=== PATIENT | female | born 1980 | race Two or more races ===

== ENCOUNTER 2016-10-02 15:43 | Inpatient (IN) | payer SELFPAY ==
[~2016-10-02] VITALS: Ht 162.6 cm; Wt 47.6 kg
[~2016-10-02 15:43] MED LIST: LANTUS SOL100 UNIT/1 SUBQ
[2016-10-02 15:48] VITALS: BP 169/11
--- NOTE | 2016-10-02 16:14 | Diagnostic Imaging Report ---
Indication: Chest Pain Comparison: None A single view chest radiograph was obtained. Findings: Cardiomediastinal appearance is within normal limits for age. Pulmonary vascularity is appropriate. The diaphragmatic contour is smooth and costophrenic angles are sharp. No pleural effusions are identified. The bones are unremarkable. Impression: No acute findings
[2016-10-02 16:20] LABS: BASOPHILS % (AUTO) 1.5 % (0.0-2.0); EOSINOPHILS % (AUTO) 2.1 % (0.0-3.0); LYMPHOCYTES % (AUTO) 28.2 % (20.0-45.0); MEAN CORPUSCULAR HEMOGLOBIN 30.4 PG (27.0-31.0); MEAN CORPUSCULAR HGB CONC 36.5 G/DL (32.0-36.0); MEAN CORPUSCULAR VOLUME 83 FL (80-99); MEAN PLATELET VOLUME 6.6 FL (6.5-10.1); MONOCYTES % (AUTO) 5.5 % (1.0-10.0); NEUTROPHILS % (AUTO) 62.8 % (45.0-75.0); PLATELET COUNT 334 K/UL (150-450); RED BLOOD COUNT 5.69 M/UL (4.20-5.40); RED CELL DISTRIBUTION WIDTH 11.7 % (11.6-14.8); WHITE BLOOD COUNT 9.8 K/UL (4.8-10.8)
[2016-10-02 16:41] LABS: ACETAMINOPHEN < 10 ug/mL (10-30); ALANINE AMINOTRANSFERASE 16 U/L (3-33); ALBUMIN/GLOBULIN RATIO 1.1 (1.0-2.7); ALCOHOL < 10 mg/dL; ANION GAP 20 (5-15); ASPARTATE AMINO TRANSFERASE 16 U/L (5-40); CALCIUM 9.2 mg/dL (8.6-10.2); CARBON DIOXIDE 22 mEQ/L (20-30); CHLORIDE 89 mEQ/L (98-107); CREATININE 0.7 mg/dL (0.5-0.9); GLOMERULAR FILTRATION RATE > 60 mL/min (>60); HEMOLYSIS 5; POTASSIUM 3.3 mEQ/L (3.4-4.9); SODIUM 131 mEQ/L (135-145); TOTAL PROTEIN 7.6 g/dL (6.6-8.7)
[2016-10-02 16:55] LABS: TROPONIN I < 0.30 ng/mL (<=0.30)
[2016-10-02 17:28] LABS: APPEARANCE,URINE CLEAR; KETONES,URINE NEGATIVE (NEGATIVE); LEUKOCYTE ESTERASE ,URINE NEGATIVE (NEGATIVE); NITRITE,URINE NEGATIVE (NEGATIVE); PH,URINE 7 (4.5-8.0); PROTEIN,URINE 3+ (NEGATIVE); UROBILINOGEN,URINE NORMAL MG/DL (0.0-1.0)
[2016-10-02] MEDS ORDERED: LORazepam Inj 2mg/ml 1ml IV ONE (17:30)
[2016-10-02 17:37] LABS: RBC,URINE 0-2 /HPF (0 - 2); WBC,URINE 0-2 /HPF (0 - 2)
[2016-10-02 17:38] LABS: SQUAMOUS EPITHELIAL CELL,UR OCCASIONAL /LPF (NONE/OCC)
[2016-10-02 19:00] VITALS: BP 140/96
--- NOTE | 2016-10-02 21:05 | Emergency Room Report ---
History of Present Illness General Chief Complaint: General Complaint Source: Patient, EMS Present Illness HPI 36-year-old female presents to ED for evaluation. Per EMS patient is complaining of dizziness and altered. EMS states that patient was found outside of the house. 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 They stopped at a grocery store and drink some or juice. States that he both admit he felt dizzy afterwards. She felt worse as per . Was lethargic and altered. Tachycardic. Patient states that she is a diabetic and did not take her medications today. Accu-Chek in the 300s. Denies chest pain or shortness of breath. Denies fevers or chills. No other aggravating or relieving factors. Denies any other associated symptoms Allergies: Coded Allergies: PENICILLINS (Unverified Allergy, Unknown, 10/02/16) Uncoded Allergies: PENICILLIN (Allergy, Unknown, 10/02/16) Patient History Past Medical History: none Past Surgical History: none Pertinent Family History: none Social History: Denies: alcohol use, drug use, smoking Last Menstrual Period: 09/19/16 Now: No Immunizations: UTD Reviewed Nursing Documentation: PMH: Agreed, PSxH: Agreed Nursing Documentation-PMH Past Medical History: No History, Except For Hx Hypertension: Yes Hx Diabetes: Yes Review of Systems All Other Systems: negative except mentioned in HPI Physical Exam Vital Signs Date Time Temp Pulse Resp B/P Pulse Ox O2 Delivery O2 Flow Rate FiO2 10/02/16 15:34 99.1 124 22 166/122 98 Room Air 10/02/16 15:48 2.0 Sp02 EP Interpretation: reviewed, normal General Appearance: non-toxic, lethargic Head: normocephalic, atraumatic Eyes: bilateral eye PERRL, bilateral eye normal inspection ENT: hearing grossly normal, normal pharynx, no angioedema, normal voice Neck: full range of motion, supple/symm/no masses Respiratory: chest non-tender, lungs clear, normal breath sounds, speaking full sentences Cardiovascular #1: no edema, tachycardia Cardiovascular #2: 2+ carotid (R), 2+ carotid (L), 2+ radial (R), 2+ radial (L) , 2+ dorsalis pedis (R), 2+ dorsalis pedis (L) Gastrointestinal: normal bowel sounds, non tender, soft, non-distended, no guarding, no rebound Rectal: deferred Genitourinary: normal inspection, no CVA tenderness Musculoskeletal: back normal, gait/station normal, normal range of motion, non- tender Neurologic: other - lethargic Psychiatric: other - lethargic Reflexes: 3+ bicep (R), 3+ bicep (L), 3+ tricep (R), 3+ tricep (L), 3+ knee (R) , 3+ knee (L) Skin: normal color, no rash, warm/dry, well hydrated Lymphatic: no adenopathy Medical Decision Making Diagnostic Impression: Primary Impression: Hyperglycemia Additional Impressions: Dizziness Altered level of consciousness ER Course Hospital Course 36-year-old F presents to ED with altered mental status. weak, lethargic Differential diagnoses include: Psychosis, EtOH, drug abuse Clinical course patient placed on stretcher. On foam charger. After initial history and physical ordered labs, IV fluids, EKG, CT brain. Labs reviewed-electrolytes okay, no leukocytosis, hemoglobin/hematocrit stable, tox panel + THC EKG - sinus tachycardia no acute changes, interpreted by me CXR unremarkable CT brain shows no acute pathology Patient remained tachycardic, feels too dizzy to walk. Do not believe patient can be discharged at this time. Will be admitted Case discussed with David he agreed to admit the patient to his service for further care and support i. I feel this is a highly complex case requiring extensive working including EKG/Rhythm strip, Xray/CT/US, Blood/urine lab work, repeat exams while in ED, and administration of strong opiates/narcotics for pain control, admission to hospital or close patient follow up. Diagnosis -hyperglycemia, dizziness, ALOC admitted to telemetry in serious condition Labs Test 10/02/16 15:50 10/02/16 16:50 White Blood Count 9.8 K/UL (4.8-10.8) Red Blood Count 5.69 M/UL (4.20-5.40) Hemoglobin 17.3 G/DL (12.0-16.0) Hematocrit 47.4 % (37.0-47.0) Mean Corpuscular Volume 83 FL (80-99) Mean Corpuscular Hemoglobin 30.4 PG (27.0-31.0) Mean Corpuscular Hemoglobin Concent 36.5 G/DL (32.0-36.0) Red Cell Distribution Width 11.7 % (11.6-14.8) Platelet Count 334 K/UL (150-450) Mean Platelet Volume 6.6 FL (6.5-10.1) Neutrophils (%) (Auto) 62.8 % (45.0-75.0) Lymphocytes (%) (Auto) 28.2 % (20.0-45.0) Monocytes (%) (Auto) 5.5 % (1.0-10.0) Eosinophils (%) (Auto) 2.1 % (0.0-3.0) Basophils (%) (Auto) 1.5 % (0.0-2.0) Sodium Level 131 mEQ/L (135-145) Potassium Level 3.3 mEQ/L (3.4-4.9) Chloride Level 89 mEQ/L (98-107) Carbon Dioxide Level 22 mEQ/L (20-30) Anion Gap 20 (5-15) Blood Urea Nitrogen 10 mg/dL (7-23) Creatinine 0.7 mg/dL (0.5-0.9) Estimat Glomerular Filtration Rate > 60 mL/min (>60) Glucose Level 387 mg/dL (74-106) Calcium Level 9.2 mg/dL (8.6-10.2) Total Bilirubin 0.3 mg/dL (0.0-1.2) Aspartate Amino Transf (AST/SGOT) 16 U/L (5-40) Alanine Aminotransferase (ALT/SGPT) 16 U/L (3-33) Alkaline Phosphatase 149 U/L (35-104) Total Creatine Kinase 128 U/L (26-140) Troponin I < 0.30 ng/mL (<=0.30) Total Protein 7.6 g/dL (6.6-8.7) Albumin 4.1 g/dL (3.5-5.2) Globulin 3.5 g/dL Albumin/Globulin Ratio 1.1 (1.0-2.7) Salicylates Level < 1 mg/dL (10-30) Acetaminophen Level < 10 ug/mL (10-30) Serum Alcohol < 10 mg/dL Acetone Level Negative (NEGATIVE) Urine Color Pale yellow Urine Appearance Clear Urine pH 7 (4.5-8.0) Urine Specific [place] 1.005 (1.005-1.035) Urine Protein 3+ (NEGATIVE) Urine Glucose (UA) 4+ (NEGATIVE) Urine Ketones Negative (NEGATIVE) Urine Occult Blood Negative (NEGATIVE) Urine Nitrite Negative (NEGATIVE) Urine Bilirubin Negative (NEGATIVE) Urine Urobilinogen Normal MG/DL (0.0-1.0) Urine Leukocyte Esterase Negative (NEGATIVE) Urine RBC 0-2 /HPF (0 - 2) Urine WBC 0-2 /HPF (0 - 2) Urine Squamous Epithelial Cells Occasional /LPF Urine Bacteria None /HPF (NONE) Urine HCG, Qualitative Negative Urine Opiates Screen Negative (NEGATIVE) Urine Barbiturates Screen Negative (NEGATIVE) Phencyclidine (PCP) Screen Negative (NEGATIVE) Urine Amphetamines Screen Negative (NEGATIVE) Urine Benzodiazepines Screen Negative (NEGATIVE) Urine Cocaine Screen Negative (NEGATIVE) Urine Marijuana (THC) Screen Positive (NEGATIVE) EKG Diagnostic Results Rate: tachycardiac Rhythm: NSR ST Segments: no acute changes ASA given to the pt in ED: No Rhythm Strip Diag. Results EP Interpretation: yes Rhythm: NSR, no PVC's, no ectopy Chest X-Ray Diagnostic Results EP Interpretation: No Findings: no consolidation, no effusion, no pneumothorax, no acute cardiopulmonary disease Number of Views: 1 CT/MRI/US Diagnostic Results CT/MRI/US Diagnostic Results : Imaging Test Ordered: CT Head Impression no acute process Last Vital Signs Date Time Temp Pulse Resp B/P Pulse Ox O2 Delivery O2 Flow Rate FiO2 10/02/16 19:00 116 15 140/96 100 Nasal Cannula 2.0 10/02/16 15:48 99.1 Status: improved Disposition: ADMITTED INPATIENT Condition: Serious Patient Instructions: Hyperglycemia, [id number] KASIA GREENE M.D. Oct 02, 2016 21:05
[2016-10-03] VITALS: BP 135/76
[2016-10-03] MEDS: NovoLOG Insulin Flexpen SUBQ SCH ×5 (00:30→21:08)
[2016-10-03 04:00] VITALS: BP 113/70
[2016-10-03] MEDS ORDERED: NovoLOG Insulin Flexpen SUBQ SCH (06:30)
[2016-10-03 07:52] VITALS: BP 123/82
[2016-10-03 08:41] LABS: BASOPHILS % (AUTO) 1.3 % (0.0-2.0); EOSINOPHILS % (AUTO) 2.2 % (0.0-3.0); LYMPHOCYTES % (AUTO) 33.2 % (20.0-45.0); MEAN CORPUSCULAR HEMOGLOBIN 28.2 PG (27.0-31.0); MEAN CORPUSCULAR HGB CONC 34.2 G/DL (32.0-36.0); MEAN CORPUSCULAR VOLUME 82 FL (80-99); MEAN PLATELET VOLUME 6.6 FL (6.5-10.1); MONOCYTES % (AUTO) 6.7 % (1.0-10.0); NEUTROPHILS % (AUTO) 56.7 % (45.0-75.0); PLATELET COUNT 339 K/UL (150-450); RED BLOOD COUNT 5.33 M/UL (4.20-5.40); RED CELL DISTRIBUTION WIDTH 12.1 % (11.6-14.8); WHITE BLOOD COUNT 7.9 K/UL (4.8-10.8)
--- NOTE | 2016-10-03 08:51 | Diagnostic Imaging Report ---
Indication: Altered mental status Technique: Contiguous 5 mm thick transaxial imaging of the head obtained in a Siemens Sensation [address] scanner. Soft tissue and bone windows generated. Total Dose length Product (DLP): [address] Dose Index Volume (CTDIvol): 70.38 mGy Comparison: none Findings: The size and configuration of the cortical sulci, basal cisterns, and ventricles are within normal limits for age. There is no mass effect, midline shift, or edema identified. There is no evidence of acute hemorrhage or abnormal intra-axial or extra-axial fluid collections. The bones and soft tissues are unremarkable. Impression: No mass effect, edema or acute bleed. The CT scanner at [facility] is accredited by the [employer] and the scans are performed using dose optimization techniques as appropriate to a performed exam including Automatic Exposure control.
[2016-10-03 08:57] LABS: ALANINE AMINOTRANSFERASE 13 U/L (3-33); ALBUMIN/GLOBULIN RATIO 1.2 (1.0-2.7); ANION GAP 11 (5-15); ASPARTATE AMINO TRANSFERASE 16 U/L (5-40); CALCIUM 8.6 mg/dL (8.6-10.2); CARBON DIOXIDE 22 mEQ/L (20-30); CHLORIDE 100 mEQ/L (98-107); CREATININE 0.5 mg/dL (0.5-0.9); GLOMERULAR FILTRATION RATE > 60 mL/min (>60); HEMOLYSIS 9; POTASSIUM 2.9 mEQ/L (3.4-4.9); SODIUM 133 mEQ/L (135-145); TOTAL PROTEIN 5.8 g/dL (6.6-8.7)
--- NOTE | 2016-10-03 10:51 | Consultation ---
Consult Note Consult Note 36-year-old female presents to ED for evaluation. Per EMS patient is complaining of dizziness and altered. EMS states that patient was found outside of the house. 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 They stopped at a grocery store and drink some or juice. States that he both admit he felt dizzy afterwards. She felt worse as per . Was lethargic and altered. Tachycardic. Patient states that she is a diabetic and did not take her medications today. Accu-Chek in the 300s. Denies chest pain or shortness of breath. Denies fevers or chills. No other aggravating or relieving factors. Denies any other associated symptoms Allergies: Coded Allergies: PENICILLINS (Unverified Allergy, Unknown, 10/02/16) Uncoded Allergies: PENICILLIN (Allergy, Unknown, 10/02/16) Assessment/Plan status: Low Na depletional Low k Urine + for Cannabis HyperGlycemia Proteinuria Plan: Isotonic IV K supplement Gastric support Prandin per orders KENNY TIPTON Oct 03, 2016 10:51
[2016-10-03 11:55] VITALS: BP 127/79
[2016-10-03] MEDS: Repaglinide 0.5mg Tab ORAL SCH ×2 (11:58→16:27)
--- NOTE | 2016-10-03 17:52 | Cardiology Report ---
APPROVED REPORT EKG Measurement Heart [id number] Sinus tachycardia Possible Left atrial enlargement Borderline ECG
--- NOTE | 2016-10-03 19:31 | General Progress Note ---
Assessment/Plan Problem List: (1) Altered level of consciousness ICD Codes: R40.4 - Transient alteration of awareness SNOMED: 0977326 (2) Dizziness ICD Codes: R42 - Dizziness and giddiness SNOMED: 977954638, 590325345 (3) Hyperglycemia ICD Codes: R73.9 - Hyperglycemia, unspecified SNOMED: 21408303 Assessment/Plan DC Prandin start Glipizide 50 mg bid + Metformin 500 mg bid continue SSI check A1c Subjective Allergies: Coded Allergies: PENICILLINS (Unverified Allergy, Unknown, 10/02/16) All Systems: reviewed and negative except above Subjective admitted with dizziness and glucose of 300 mg/dL missed her diabetic medications she feels fine now and wants to go home Objective Last 24 Hour Vital Signs Date Time Temp Pulse Resp B/P Pulse Ox O2 Delivery O2 Flow Rate FiO2 10/03/16 16:00 102 10/03/16 12:00 85 10/03/16 11:55 97.0 84 18 127/79 98 Room Air 10/03/16 08:00 85 10/03/16 07:52 97.5 99 18 123/82 97 Room Air 10/03/16 04:00 97.6 85 20 113/70 98 Nasal Cannula 2.0 10/03/16 04:00 87 10/03/16 00:00 97.8 111 20 135/76 99 Nasal Cannula 2.0 10/03/16 00:00 91 10/02/16 22:26 132/78 Intake and Output 10/02/16 10/03/16 19:00 07:00 Intake Total 1000 ml 1200 ml Balance 1000 ml 1200 ml Intake Oral 0 ml 200 ml IV Total 1000 ml 1000 ml Laboratory Tests 10/03/16 08:00: White Blood Count 7.9, Red Blood Count 5.33, Hemoglobin 15.0, Hematocrit 43.9, Mean Corpuscular Volume 82, Mean Corpuscular Hemoglobin 28.2, Mean Corpuscular Hemoglobin Concent 34.2, Red Cell Distribution Width 12.1, Platelet Count 339, Mean Platelet Volume 6.6, Neutrophils (%) (Auto) 56.7, Lymphocytes (%) (Auto) 33.2, Monocytes (%) (Auto) 6.7, Eosinophils (%) (Auto) 2.2, Basophils (%) (Auto ) 1.3, Sodium Level 133L, Potassium Level 2.9L, Chloride Level 100, Carbon Dioxide Level 22, Anion Gap 11, Blood Urea Nitrogen 6L, Creatinine 0.5, Estimat Glomerular Filtration Rate > 60, Glucose Level 226#H, Uric Acid 4.4, Calcium Level 8.6, Total Bilirubin 0.3, Aspartate Amino Transf (AST/SGOT) 16, Alanine Aminotransferase (ALT/SGPT) 13, Alkaline Phosphatase 111H, Total Protein 5.8L, Albumin 3.2L, Globulin 2.6, Albumin/Globulin Ratio 1.2 10/03/16 13:30: Urine Random Sodium 59 Height (Feet): 5 Height (Inches): 4.00 Weight (Pounds): 105 General Appearance: no apparent distress EENT: PERRL/EOMI Neck: normal alignment Cardiovascular: normal rate Respiratory/Chest: chest wall non-tender Abdomen: normal bowel sounds Pelvis: normal external exam Edema: no edema noted Arm (L), no edema noted Arm (R), no edema noted Leg (L), no edema noted Leg (R), no edema noted Pedal (L), no edema noted Pedal (R), no edema noted Generalized Objective Current Medications Medications (Trade) Dose Ordered Sig/Byron Route PRN Reason Start Time Stop Time Status Last Admin Dose Admin Acetaminophen (Tylenol) 650 mg Q4H PRN ORAL Mild Pain/Temp > 100.5 10/02/16 23:00 11/01/16 22:59 Dextrose (Dextrose 50%) STAT PRN IV Hypoglycemia 10/02/16 23:00 11/01/16 22:59 Insulin Aspart BEFORE MEALS AND HS SUBQ 10/02/16 23:00 11/01/16 22:59 10/03/16 16:27 Pantoprazole (Protonix) 40 mg EVERY 12 HOURS ORAL 10/03/16 11:00 11/02/16 10:59 10/03/16 11:06 Potassium Chloride/Sodium Chloride (KCl/Sodium Chloride 1000ml bag) 1,020 ml @ 75 mls/hr [id number] IV 10/03/16 12:00 11/02/16 11:59 10/03/16 11:32 Repaglinide (Prandin) 0.5 mg TIAC ORAL 10/03/16 11:30 11/02/16 11:29 10/03/16 16:27 NAZEMI,APOLLO Oct 03, 2016 19:31
[2016-10-03 20:00] VITALS: BP 131/91
[2016-10-03] MEDS: metFORMIN 500mg tab ORAL SCH (21:04)
[2016-10-03] MEDS: GlipiZIDE 5mg tab ORAL SCH (21:05)
--- NOTE | 2016-10-03 22:14 | Neurology Progress Note ---
Interim History Interim History Interim History NEUROLOGY CONSULTATION: Full note dictated #[id number] 36 y/o, RH, HF with 4 year H/O DM. Was cleaning a house with her and had some OJ following which she felt confused, disoriented and unwell. She does not remember details. Fells well now. ON EXAM: Normal except for mild cognitive problems which could be due to poor education Global hyporeflexia. LABS: Elevated HB and Glu, low Na. UTox + for THC CT of brain Normal IMPRESSION: Altered mental state now resolved possibly due to THC intoxication. REC: Stay away from drugs. BS control. Hari Grande M.D., M.S.P.H. Objective Physical Exam Last Vital Signs Date Time Temp Pulse Resp B/P Pulse Ox O2 Delivery O2 Flow Rate FiO2 10/03/16 20:00 95.0 86 18 131/91 98 Room Air 2.0 Laboratory Tests Test 10/03/16 08:00 10/03/16 13:30 White Blood Count 7.9 K/UL (4.8-10.8) Red Blood Count 5.33 M/UL (4.20-5.40) Hemoglobin 15.0 G/DL (12.0-16.0) Hematocrit 43.9 % (37.0-47.0) Mean Corpuscular Volume 82 FL (80-99) Mean Corpuscular Hemoglobin 28.2 PG (27.0-31.0) Mean Corpuscular Hemoglobin Concent 34.2 G/DL (32.0-36.0) Red Cell Distribution Width 12.1 % (11.6-14.8) Platelet Count 339 K/UL (150-450) Mean Platelet Volume 6.6 FL (6.5-10.1) Neutrophils (%) (Auto) 56.7 % (45.0-75.0) Lymphocytes (%) (Auto) 33.2 % (20.0-45.0) Monocytes (%) (Auto) 6.7 % (1.0-10.0) Eosinophils (%) (Auto) 2.2 % (0.0-3.0) Basophils (%) (Auto) 1.3 % (0.0-2.0) Sodium Level 133 mEQ/L (135-145) L Potassium Level 2.9 mEQ/L (3.4-4.9) L Chloride Level 100 mEQ/L (98-107) Carbon Dioxide Level 22 mEQ/L (20-30) Anion Gap 11 (5-15) Blood Urea Nitrogen 6 mg/dL (7-23) L Creatinine 0.5 mg/dL (0.5-0.9) Estimat Glomerular Filtration Rate > 60 mL/min (>60) Glucose Level 226 mg/dL (74-106) #H Uric Acid 4.4 mg/dL (3.0-7.5) Calcium Level 8.6 mg/dL (8.6-10.2) Total Bilirubin 0.3 mg/dL (0.0-1.2) Aspartate Amino Transf (AST/SGOT) 16 U/L (5-40) Alanine Aminotransferase (ALT/SGPT) 13 U/L (3-33) Alkaline Phosphatase 111 U/L (35-104) H Total Protein 5.8 g/dL (6.6-8.7) L Albumin 3.2 g/dL (3.5-5.2) L Globulin 2.6 g/dL Albumin/Globulin Ratio 1.2 (1.0-2.7) Urine Random Sodium 59 mmol/L HARI GRANDE Oct 03, 2016 22:14
--- NOTE | 2016-10-03 23:00 | Consultation ---
DATE OF CONSULTATION: 10/03/2016 NEUROLOGY CONSULTATION REQUESTING PHYSICIAN: Kiko Hernandez M.D. HISTORY: Ms. Lubna Chow is a 36-year-old, right-handed, lady, who has an approximately 4-year history of diabetes mellitus, which she says is well controlled on metformin and glipizide. She was functioning relatively well and working with her , cleaning a house and following that had some orange juice. A few minutes after she had drunk the orange juice she felt confused, disoriented and unwell. She does not remember any further details. Following that, however as per her chart she was brought into the [facility] emergency room for an altered mental state. She was evaluated in the emergency room and her urine toxicology screen was positive for cannabinoids. At this point in time, she feels that she is back to her normal self. She denies any weakness on one side or the other, numbness on one side or the other, problems with speech, problems with language, problems with vision, or problems with her memory. She also denies any similar symptoms in the past. PAST MEDICAL HISTORY: Significant for diabetes mellitus for the last 4 years. FAMILY HISTORY: Significant for diabetes mellitus in other family members. PERSONAL HISTORY: Home: She lives with her . Work: She and her clean houses. Habits: She denies the use of alcohol, tobacco, or illicit drugs and vehemently denies using cannabinoids. PHYSICAL EXAMINATION: GENERAL: She is a well-developed, well-nourished, pleasant lady, lying in bed, in no acute distress. VITAL SIGNS: Pulse 86 per minute, blood pressure 131/91 mmHg, respirations 18 per minute, and temperature 95 degrees Fahrenheit. HEAD: Normocephalic and atraumatic. NECK: No neck rigidity was observed. EENT EXAMINATION: Benign. NEUROLOGIC EXAMINATION: MENTAL STATUS EXAMINATION: She was alert and awake. She was oriented to person, place, and time except for the exact date and name of the hospital. She was able to recall 3/3 words immediately after 1 and 3 minutes. She was able to remember presidents Trump and Obama, but could not remember presidents prior to that. Her mathematical skills were minimally impaired. Her visuospatial function was also minimally impaired. It should be noted that her educational level was poor. SPEECH: She had no dysarthria. LANGUAGE: She had no aphasia and Azeri. CRANIAL NERVE EXAMINATION: II: The visual hendrickson were intact to confrontation testing. III, IV & : External ocular movements were full and the pupils 3 mm in diameter, equal, round, regular and reactive to light. V: She had normal facial sensations, and the temporales, masseters, and pterygoids function normally. VII: She had normal facial expressions and no facial asymmetry. VIII: She was able to hear well bilaterally and had no nystagmus. IX: The palate moved symmetrically on phonation. X: She had no hoarseness of voice. XI: The sternocleidomastoids and trapezii functioned normally. XII: The tongue was in the midline without any fasciculations or atrophy. MOTOR SYSTEM: The tone was normal in all four extremities. Examination of muscle mass revealed no focal wasting. Examination of power revealed grade 5/5 power in all muscle groups tested. SENSORY EXAMINATION: She had intact sensations to pinprick, light touch, and graphesthesia. COORDINATION: She performed well on [id number]-cx-urcp and fjri-gx-iwts testing. On Romberg test, she swayed but did not fall to one side or the other. REFLEXES: Trace+ and bilaterally symmetrical at the biceps, triceps, brachioradialis, and knees. 0 at both ankles. The plantar responses were flexor bilaterally. STANCE: She stood up with contact guard. GAIT: She walked well with contact guard. DIAGNOSTIC IMPRESSION: 1. Ms. Lubna Chow is a 36-year-old, right-handed, lady, who does have a past history of diabetes mellitus, which apparently is well controlled on glipizide and metformin. She was functioning relatively well until 10/02/2016 when she her and were cleaning a house, and then after she had drunk some orange juice she felt confused, disoriented and unwell. Following that, she is amnestic for the events until she came to the hospital. At this point in time, she feels that she is back to her normal self. 2. The neurological examination at this time reveal that she is disoriented to the exact date and name of the hospital. She has problems with remote memory, visuospatial function, and higher cognitive function, but it should be noted that the educational level is poor. She also has global hyporeflexia. 3. Laboratory data revealed that her hemoglobin was elevated to 17.3, her sodium was down to 131, blood sugar was elevated to 387, her alkaline phosphatase was elevated to 149 and her urine toxicology screen was positive for cannabinoids. 4. The patient's history, neurological examination, and laboratory data are most compatible with an episode of altered mental state, which has now resolved most probably related to cannabinoid intoxication. RECOMMENDATIONS: 1. The patient was made aware that her urine toxicology screen was positive for cannabinoids in spite of her saying that she has never used them. 2. She was instructed to stay away from all illicit drugs. 3. Her blood sugars should be controlled and brought down to a more physiological range. Thank you for entrusting me with the care of Ms. Chow. I shall follow her with you. Jose R Grande M.D., M.S.P.H. DR: VERONICA JOB#: [id number] ARAM
[2016-10-04] VITALS (7 sets, daily range): BP systolic 118–149; BP diastolic 80–90
--- NOTE | 2016-10-04 00:15 | History and Physical Report ---
DATE OF ADMISSION: 10/02/2016 HISTORY OF PRESENT ILLNESS: The patient is admitted for dizziness, weakness, and altered mental status. She states that she drank some orange juice and felt bad afterwards. Workup is negative so far. The patient denies nausea, vomiting, or diarrhea. Has dizziness and vertigo. The patient's blood sugar was also elevated. PAST MEDICAL HISTORY: Diabetes and hypertension. PAST SURGICAL HISTORY: . ALLERGIES: None. MEDICATIONS: Insulin. FAMILY HISTORY: Does have history of diabetes and hypertension. SOCIAL HISTORY: The patient denies smoking, alcohol, or illicit drugs. REVIEW OF SYSTEMS: HEENT: Denies headaches. Respiratory: Denies shortness of breath. Denies cough. Cardiovascular: Denies chest pain. GI: Denies nausea, vomiting, or diarrhea. Extremities: Denies pain in the extremities. Central nervous system: Denies change in vision or speech pattern. She does have dizziness and weakness and , however, denies diplopia. PHYSICAL EXAMINATION: VITAL SIGNS: Temperature is 97.6 degrees, pulse 87, and blood pressure 113/70. HEENT: PERRLA. NECK: Supple. No lymphadenopathy. CHEST: Clear to auscultation. GI: Soft, nontender, and nondistended. No organomegaly. EXTREMITIES: No edema. Moves all four extremities. NEUROLOGIC: Sensory is intact to light touch. Reflexes are equal on both sides. Oriented x3. Cranial nerves II through XII intact. LABORATORY DATA: Laboratory-mendosa, WBC 9.8, hemoglobin 17.3, and platelets of 334,000. Sodium 131, potassium 3.3, BUN 10, creatinine 0.7, and glucose 287. ASSESSMENT AND PLAN: 1. Hyponatremia. 2. Hypokalemia. 3. Elevated blood sugar. 4. Uncontrolled diabetes. 5. Given weakness and altered mental status, I have asked Dr. Sibley, Dr. Tolbert, and Dr. Grande to see the patient for the above-mentioned diagnoses and treatment. Kiko Hernandez M.D. DR: MARIBETH JOB#: [id number] CC:
[2016-10-04] MEDS: NovoLOG Insulin Flexpen SUBQ SCH ×4 (06:22→20:39)
[2016-10-04 07:46] LABS: BASOPHILS % (AUTO) 1.2 % (0.0-2.0); EOSINOPHILS % (AUTO) 4.5 % (0.0-3.0); LYMPHOCYTES % (AUTO) 28.1 % (20.0-45.0); MEAN CORPUSCULAR HEMOGLOBIN 28.3 PG (27.0-31.0); MEAN CORPUSCULAR HGB CONC 34.2 G/DL (32.0-36.0); MEAN CORPUSCULAR VOLUME 83 FL (80-99); MEAN PLATELET VOLUME 6.4 FL (6.5-10.1); MONOCYTES % (AUTO) 7.3 % (1.0-10.0); NEUTROPHILS % (AUTO) 58.9 % (45.0-75.0); PLATELET COUNT 354 K/UL (150-450); RED BLOOD COUNT 5.79 M/UL (4.20-5.40); WHITE BLOOD COUNT 7.7 K/UL (4.8-10.8)
[2016-10-04 08:10] LABS: CRP QUANT < 0.3 mg/dL (< 0.5); MAGNESIUM 1.2 mg/dL (1.7-2.5); URIC ACID 4.5 mg/dL (3.0-7.5)
[2016-10-04 08:12] LABS: ALANINE AMINOTRANSFERASE 14 U/L (3-33); ALBUMIN/GLOBULIN RATIO 1.6 (1.0-2.7); ANION GAP 17 (5-15); ASPARTATE AMINO TRANSFERASE 14 U/L (5-40); CALCIUM 9.3 mg/dL (8.6-10.2); CARBON DIOXIDE 22 mEQ/L (20-30); CHLORIDE 96 mEQ/L (98-107); CHOLESTEROL 351 mg/dL (< 200); CHOLESTEROL/HDL RATIO 7.8 (3.3-4.4); CREATININE 0.6 mg/dL (0.5-0.9); GLOMERULAR FILTRATION RATE > 60 mL/min (>60); HEMOLYSIS 2; LDL CHOLESTEROL (CALC.) 228 mg/dL (60-99); POTASSIUM 4.1 mEQ/L (3.4-4.9); SODIUM 135 mEQ/L (135-145)
[2016-10-04 08:27] LABS: HEMOGLOBIN A1C 11.5 % (< 6.0)
[2016-10-04] MEDS: GlipiZIDE 5mg tab ORAL SCH ×2 (09:34→17:29)
[2016-10-04] MEDS: metFORMIN 500mg tab ORAL SCH ×2 (09:34→17:29)
--- NOTE | 2016-10-04 12:13 | General Progress Note ---
Assessment/Plan Problem List: (1) Hyperglycemia ICD Codes: R73.9 - Hyperglycemia, unspecified SNOMED: 87557511 (2) Dizziness ICD Codes: R42 - Dizziness and giddiness SNOMED: 604379038, [id number] (3) Altered level of consciousness ICD Codes: R40.4 - Transient alteration of awareness SNOMED: 6935589 Status: progressing Assessment/Plan afebrile vitals stable no wheezing clinically improving reviewed chart and labs Subjective ROS Limited/Unobtainable: Yes Allergies: Coded Allergies: PENICILLINS (Unverified Allergy, Unknown, 10/02/16) Objective Last 24 Hour Vital Signs Date Time Temp Pulse Resp B/P Pulse Ox O2 Delivery O2 Flow Rate FiO2 10/04/16 11:54 98.8 90 18 143/88 98 Room Air 10/04/16 09:00 76 10/04/16 08:00 98.4 81 18 120/81 99 Room Air 10/04/16 04:17 97.2 86 20 118/85 98 Room Air 10/04/16 04:00 75 10/04/16 03:57 97.2 88 18 136/90 98 Room Air 2.0 10/04/16 00:00 77 10/04/16 00:00 98.2 88 18 136/90 98 Room Air 2.0 10/03/16 20:00 84 10/03/16 20:00 95.0 86 18 131/91 98 Room Air 2.0 10/03/16 16:00 102 Intake and Output 10/03/16 10/04/16 19:00 07:00 Intake Total 685 ml 977 ml Balance 685 ml 977 ml Intake Oral 120 ml 100 ml IV Total 565 ml 877 ml # Voids 3 Laboratory Tests 10/03/16 13:30: Urine Random Sodium 59 10/04/16 07:00: White Blood Count 7.7, Red Blood Count 5.79H, Hemoglobin 16.4H, Hematocrit 47.9H , Mean Corpuscular Volume 83, Mean Corpuscular Hemoglobin 28.3, Mean Corpuscular Hemoglobin Concent 34.2, Red Cell Distribution Width 12.0, Platelet Count 354, Mean Platelet Volume 6.4L, Neutrophils (%) (Auto) 58.9, Lymphocytes ( %) (Auto) 28.1, Monocytes (%) (Auto) 7.3, Eosinophils (%) (Auto) 4.5H, Basophils (%) (Auto) 1.2, Sodium Level 135, Potassium Level 4.1, Chloride Level 96L, Carbon Dioxide Level 22, Anion Gap 17H, Blood Urea Nitrogen 9, Creatinine 0.6, Estimat Glomerular Filtration Rate > 60, Glucose Level 267H, Hemoglobin A1c 11.5H, Uric Acid 4.5, Calcium Level 9.3, Phosphorus Level 3.0, Magnesium Level 1.2L, Total Bilirubin 0.3, Aspartate Amino Transf (AST/SGOT) 14, Alanine Aminotransferase (ALT/SGPT) 14, Alkaline Phosphatase 121H, C-Reactive Protein, Quantitative < 0.3, Total Protein 6.0L, Albumin 3.7, Globulin 2.3, Albumin/ Globulin Ratio 1.6, Triglycerides Level 390H, Cholesterol Level 351H, LDL Cholesterol 228H, HDL Cholesterol 45, Cholesterol/HDL Ratio 7.8H Height (Feet): 5 Height (Inches): 4.00 Weight (Pounds): 105 Cardiovascular: normal rate Respiratory/Chest: lungs clear Abdomen: soft Kiko Hernandez MD Oct 04, 2016 12:13
--- NOTE | 2016-10-04 12:30 | General Progress Note ---
Assessment/Plan Status: stable Assessment/Plan Low Na depletional corrected Low k- corrected- Urine + for Cannabis HyperGlycemia Proteinuria Low Mag Plan: Isotonic IV Mag supplement- K supplement Gastric support Glipizide and Metformin per orders Subjective ROS Limited/Unobtainable: No Allergies: Coded Allergies: PENICILLINS (Unverified Allergy, Unknown, 10/02/16) Objective Last 24 Hour Vital Signs Date Time Temp Pulse Resp B/P Pulse Ox O2 Delivery O2 Flow Rate FiO2 10/04/16 11:54 98.8 90 18 143/88 98 Room Air 10/04/16 09:00 76 10/04/16 08:00 98.4 81 18 120/81 99 Room Air 10/04/16 04:17 97.2 86 20 118/85 98 Room Air 10/04/16 04:00 75 10/04/16 03:57 97.2 88 18 136/90 98 Room Air 2.0 10/04/16 00:00 77 10/04/16 00:00 98.2 88 18 136/90 98 Room Air 2.0 10/03/16 20:00 84 10/03/16 20:00 95.0 86 18 131/91 98 Room Air 2.0 10/03/16 16:00 102 Intake and Output 10/03/16 10/04/16 19:00 07:00 Intake Total 685 ml 977 ml Balance 685 ml 977 ml Intake Oral 120 ml 100 ml IV Total 565 ml 877 ml # Voids 3 Laboratory Tests 10/03/16 13:30: Urine Random Sodium 59 10/04/16 07:00: White Blood Count 7.7, Red Blood Count 5.79H, Hemoglobin 16.4H, Hematocrit 47.9H , Mean Corpuscular Volume 83, Mean Corpuscular Hemoglobin 28.3, Mean Corpuscular Hemoglobin Concent 34.2, Red Cell Distribution Width 12.0, Platelet Count 354, Mean Platelet Volume 6.4L, Neutrophils (%) (Auto) 58.9, Lymphocytes ( %) (Auto) 28.1, Monocytes (%) (Auto) 7.3, Eosinophils (%) (Auto) 4.5H, Basophils (%) (Auto) 1.2, Sodium Level 135, Potassium Level 4.1, Chloride Level 96L, Carbon Dioxide Level 22, Anion Gap 17H, Blood Urea Nitrogen 9, Creatinine 0.6, Estimat Glomerular Filtration Rate > 60, Glucose Level 267H, Hemoglobin A1c 11.5H, Uric Acid 4.5, Calcium Level 9.3, Phosphorus Level 3.0, Magnesium Level 1.2L, Total Bilirubin 0.3, Aspartate Amino Transf (AST/SGOT) 14, Alanine Aminotransferase (ALT/SGPT) 14, Alkaline Phosphatase 121H, C-Reactive Protein, Quantitative < 0.3, Total Protein 6.0L, Albumin 3.7, Globulin 2.3, Albumin/ Globulin Ratio 1.6, Triglycerides Level 390H, Cholesterol Level 351H, LDL Cholesterol 228H, HDL Cholesterol 45, Cholesterol/HDL Ratio 7.8H Height (Feet): 5 Height (Inches): 4.00 Weight (Pounds): 105 General Appearance: no apparent distress Objective PE not changed KENNY TIPTON Oct 04, 2016 12:30
--- NOTE | 2016-10-04 13:07 | Neurology Progress Note ---
Interim History Interim History Interim History Ms. Chow continues to feel well. Her got me the can from which she drank her orange juice. It was a THC infused citrus drink! The mind is clear. She denies any new neurologic symptoms. Review of Systems Neuro Review of Systems Benign. Objective Physical Exam Last Vital Signs Date Time Temp Pulse Resp B/P Pulse Ox O2 Delivery O2 Flow Rate FiO2 10/04/16 11:54 98.8 90 18 143/88 98 Room Air 10/04/16 03:57 2.0 Laboratory Tests Test 10/03/16 13:30 10/04/16 07:00 Urine Random Sodium 59 mmol/L White Blood Count 7.7 K/UL (4.8-10.8) Red Blood Count 5.79 M/UL (4.20-5.40) H Hemoglobin 16.4 G/DL (12.0-16.0) H Hematocrit 47.9 % (37.0-47.0) H Mean Corpuscular Volume 83 FL (80-99) Mean Corpuscular Hemoglobin 28.3 PG (27.0-31.0) Mean Corpuscular Hemoglobin Concent 34.2 G/DL (32.0-36.0) Red Cell Distribution Width 12.0 % (11.6-14.8) Platelet Count 354 K/UL (150-450) Mean Platelet Volume 6.4 FL (6.5-10.1) L Neutrophils (%) (Auto) 58.9 % (45.0-75.0) Lymphocytes (%) (Auto) 28.1 % (20.0-45.0) Monocytes (%) (Auto) 7.3 % (1.0-10.0) Eosinophils (%) (Auto) 4.5 % (0.0-3.0) H Basophils (%) (Auto) 1.2 % (0.0-2.0) Sodium Level 135 mEQ/L (135-145) Potassium Level 4.1 mEQ/L (3.4-4.9) Chloride Level 96 mEQ/L (98-107) L Carbon Dioxide Level 22 mEQ/L (20-30) Anion Gap 17 (5-15) H Blood Urea Nitrogen 9 mg/dL (7-23) Creatinine 0.6 mg/dL (0.5-0.9) Estimat Glomerular Filtration Rate > 60 mL/min (>60) Glucose Level 267 mg/dL (74-106) H Hemoglobin A1c 11.5 % (< 6.0) H Uric Acid 4.5 mg/dL (3.0-7.5) Calcium Level 9.3 mg/dL (8.6-10.2) Phosphorus Level 3.0 mg/dL (2.5-4.8) Magnesium Level 1.2 mg/dL (1.7-2.5) L Total Bilirubin 0.3 mg/dL (0.0-1.2) Aspartate Amino Transf (AST/SGOT) 14 U/L (5-40) Alanine Aminotransferase (ALT/SGPT) 14 U/L (3-33) Alkaline Phosphatase 121 U/L (35-104) H C-Reactive Protein, Quantitative < 0.3 mg/dL (< 0.5) Total Protein 6.0 g/dL (6.6-8.7) L Albumin 3.7 g/dL (3.5-5.2) Globulin 2.3 g/dL Albumin/Globulin Ratio 1.6 (1.0-2.7) Triglycerides Level 390 mg/dL (< 150) H Cholesterol Level 351 mg/dL (< 200) H LDL Cholesterol 228 mg/dL (60-99) H HDL Cholesterol 45 mg/dL (> 60) Cholesterol/HDL Ratio 7.8 (3.3-4.4) H Neurologic Exam Objective PHYSICAL EXAMINATION: GENERAL: She is a well-developed, well-nourished, pleasant lady, lying in bed, in no acute distress. HEAD: Normocephalic and atraumatic. NECK: No neck rigidity was observed. EENT EXAMINATION: Benign. NEUROLOGIC EXAMINATION: MENTAL STATUS EXAMINATION: She was alert and awake. She was oriented to person, place, and time except for the exact date. She was able to recall 3/3 words immediately after 1 and 3 minutes. She was able to remember presidents Trump and Obama, but could not remember presidents prior to that. Her mathematical skills were minimally impaired. Her visuospatial function was also minimally impaired. It should be noted that her educational level was poor. SPEECH: She had no dysarthria. LANGUAGE: She had no aphasia and Swedish. CRANIAL NERVE EXAMINATION: II: The visual hendrickson were intact to confrontation testing. III, IV & : External ocular movements were full and the pupils 3 mm in diameter, equal, round, regular and reactive to light. V: She had normal facial sensations, and the temporales, masseters, and pterygoids function normally. VII: She had normal facial expressions and no facial asymmetry. VIII: She was able to hear well bilaterally and had no nystagmus. IX: The palate moved symmetrically on phonation. X: She had no hoarseness of voice. XI: The sternocleidomastoids and trapezii functioned normally. XII: The tongue was in the midline without any fasciculations or atrophy. MOTOR SYSTEM: The tone was normal in all four extremities. Examination of muscle mass revealed no focal wasting. Examination of power revealed grade 5/5 power in all muscle groups tested. SENSORY EXAMINATION: She had intact sensations to pinprick, light touch, and graphesthesia. COORDINATION: She performed well on [id number] and [id number] testing. On Romberg test, she swayed but did not fall to one side or the other. REFLEXES: Trace+ and bilaterally symmetrical at the biceps, triceps, brachioradialis, and knees. 0 at both ankles. The plantar responses were flexor bilaterally. STANCE: She stood up independently. GAIT: She walked well independently. Impression/Recommendations Diagnostic Impression 1. Ms. Lubna Chwo is a 36-year-old, right-handed, lady, who does have a past history of diabetes mellitus, which apparently is well controlled on glipizide and metformin. She was functioning relatively well until 2016 when she her and were cleaning a house, and then after she had drunk some orange juice she felt confused, disoriented and unwell. Following that, she is amnestic for the events until she came to the hospital. 2. At this point in time, she feels that she is back to her normal self. She denies any new neurologic symptoms. 3. The neurological examination at this time reveal that she is disoriented to the exact date. She has problems with remote memory, visuospatial function, and higher cognitive function, but it should be noted that the educational level is poor. She also has global hyporeflexia. 4. Laboratory data revealed that her hemoglobin was elevated to 17.3, her sodium was down to 131, blood sugar was elevated to 387, her alkaline phosphatase was elevated to 149 and her urine toxicology screen was positive for cannabinoids. 5. The patient's history, neurological examination, and laboratory data are most compatible with an episode of altered mental state, which has now resolved related to accidental cannabinoid intoxication - the can of orange juice was THC infused! Recommendations 1. The patient was made aware that she should look at what she eats and drinks. 2. She was instructed to stay away from all illicit drugs. 3. Her blood sugars should be controlled and brought down to a more physiological range. Hari Nina M.D., M.S.P.Martine. HARI NINA Oct 04, 2016 13:07
[2016-10-05 00:12] VITALS: BP 129/94
[2016-10-05 04:13] VITALS: BP 121/88
[2016-10-05] MEDS: NovoLOG Insulin Flexpen SUBQ SCH ×2 (06:21→12:13)
[2016-10-05 07:49] VITALS: BP 108/72
[2016-10-05] MEDS: GlipiZIDE 5mg tab ORAL SCH (09:11)
[2016-10-05] MEDS: metFORMIN 500mg tab ORAL SCH (09:12)
--- NOTE | 2016-10-05 09:28 | General Progress Note ---
Assessment/Plan Status: stable Assessment/Plan Low Na depletional corrected Low k- corrected- Urine + for Cannabis HyperGlycemia Proteinuria Low Mag Plan: stable Gastric support Glipizide and Metformin per orders ? DC Subjective ROS Limited/Unobtainable: No Allergies: Coded Allergies: PENICILLINS (Unverified Allergy, Unknown, 10/02/16) Objective Last 24 Hour Vital Signs Date Time Temp Pulse Resp B/P Pulse Ox O2 Delivery O2 Flow Rate FiO2 10/05/16 07:49 98.1 87 18 108/72 100 Room Air 10/05/16 04:13 97.7 91 17 121/88 98 Room Air 10/05/16 04:00 90 10/05/16 00:12 98.1 88 18 129/94 99 Room Air 10/05/16 00:00 78 10/04/16 20:15 97.9 76 18 126/87 95 Room Air 10/04/16 20:00 78 10/04/16 16:00 98.6 102 18 149/80 99 Room Air 10/04/16 16:00 106 10/04/16 12:00 77 10/04/16 11:54 98.8 90 18 143/88 98 Room Air Intake and Output 10/04/16 10/05/16 19:00 07:00 Intake Total 1215 ml 645 ml Balance 1215 ml 645 ml Intake Oral 1140 ml 120 ml IV Total 75 ml 525 ml # Voids 4 3 # Bowel Movements 1 Height (Feet): 5 Height (Inches): 4.00 Weight (Pounds): 105 General Appearance: no apparent distress Objective PE not changed KENNY TIPTON Oct 05, 2016 09:28
[2016-10-05 09:56] LABS: EOSINOPHILS % (AUTO) 2.2 % (0.0-3.0); LYMPHOCYTES % (AUTO) 24.5 % (20.0-45.0); MEAN CORPUSCULAR HEMOGLOBIN 28.3 PG (27.0-31.0); MEAN CORPUSCULAR HGB CONC 33.9 G/DL (32.0-36.0); MEAN CORPUSCULAR VOLUME 83 FL (80-99); MEAN PLATELET VOLUME 6.3 FL (6.5-10.1); MONOCYTES % (AUTO) 5.5 % (1.0-10.0); NEUTROPHILS % (AUTO) 66.9 % (45.0-75.0); PLATELET COUNT 378 K/UL (150-450); RED BLOOD COUNT 5.87 M/UL (4.20-5.40); RED CELL DISTRIBUTION WIDTH 11.9 % (11.6-14.8); WHITE BLOOD COUNT 9.6 K/UL (4.8-10.8)
[2016-10-05 10:10] LABS: ANION GAP 17 (5-15); CALCIUM 8.9 mg/dL (8.6-10.2); CARBON DIOXIDE 19 mEQ/L (20-30); CHLORIDE 98 mEQ/L (98-107); CREATININE 0.7 mg/dL (0.5-0.9); GLOMERULAR FILTRATION RATE > 60 mL/min (>60); HEMOLYSIS 8; MAGNESIUM 1.4 mg/dL (1.7-2.5); POTASSIUM 3.7 mEQ/L (3.4-4.9); SODIUM 134 mEQ/L (135-145)
[2016-10-05 11:27] VITALS: BP 124/89
--- NOTE | 2016-10-05 14:00 | Neurology Progress Note ---
Interim History Interim History Interim History Ms. Chow continues to feel well. The mind is clear. She denies any new neurologic symptoms. She specifically denies any alteration in her mental state, weakness, numbness, blurry vision, double vision, problems with speech or problems with language. Review of Systems Neuro Review of Systems Benign. Objective Physical Exam Last Vital Signs Date Time Temp Pulse Resp B/P Pulse Ox O2 Delivery O2 Flow Rate FiO2 10/05/16 11:27 98.1 95 18 124/89 Room Air 95 10/05/16 07:49 100 10/04/16 03:57 2.0 Laboratory Tests Test 10/05/16 09:15 White Blood Count 9.6 K/UL (4.8-10.8) Red Blood Count 5.87 M/UL (4.20-5.40) H Hemoglobin 16.6 G/DL (12.0-16.0) H Hematocrit 48.9 % (37.0-47.0) H Mean Corpuscular Volume 83 FL (80-99) Mean Corpuscular Hemoglobin 28.3 PG (27.0-31.0) Mean Corpuscular Hemoglobin Concent 33.9 G/DL (32.0-36.0) Red Cell Distribution Width 11.9 % (11.6-14.8) Platelet Count 378 K/UL (150-450) Mean Platelet Volume 6.3 FL (6.5-10.1) L Neutrophils (%) (Auto) 66.9 % (45.0-75.0) Lymphocytes (%) (Auto) 24.5 % (20.0-45.0) Monocytes (%) (Auto) 5.5 % (1.0-10.0) Eosinophils (%) (Auto) 2.2 % (0.0-3.0) Basophils (%) (Auto) 1.0 % (0.0-2.0) Sodium Level 134 mEQ/L (135-145) L Potassium Level 3.7 mEQ/L (3.4-4.9) Chloride Level 98 mEQ/L (98-107) Carbon Dioxide Level 19 mEQ/L (20-30) L Anion Gap 17 (5-15) H Blood Urea Nitrogen 12 mg/dL (7-23) Creatinine 0.7 mg/dL (0.5-0.9) Estimat Glomerular Filtration Rate > 60 mL/min (>60) Glucose Level 338 mg/dL (74-106) H Calcium Level 8.9 mg/dL (8.6-10.2) Magnesium Level 1.4 mg/dL (1.7-2.5) L Neurologic Exam Objective PHYSICAL EXAMINATION: GENERAL: She is a well-developed, well-nourished, pleasant lady, lying in bed, in no acute distress. HEAD: Normocephalic and atraumatic. NECK: No neck rigidity was observed. EENT EXAMINATION: Benign. NEUROLOGIC EXAMINATION: MENTAL STATUS EXAMINATION: She was alert and awake. She was oriented to person, place, and time except for the exact date. She was able to recall 3/3 words immediately after 1 and 3 minutes. She was able to remember presidents Trump and Obama, but could not remember presidents prior to that. Her mathematical skills were minimally impaired. Her visuospatial function was also minimally impaired. It should be noted that her educational level was poor. SPEECH: She had no dysarthria. LANGUAGE: She had no aphasia and Kinyarwanda. CRANIAL NERVE EXAMINATION: II: The visual hendrickson were intact to confrontation testing. III, IV & : External ocular movements were full and the pupils 3 mm in diameter, equal, round, regular and reactive to light. V: She had normal facial sensations, and the temporales, masseters, and pterygoids function normally. VII: She had normal facial expressions and no facial asymmetry. VIII: She was able to hear well bilaterally and had no nystagmus. IX: The palate moved symmetrically on phonation. X: She had no hoarseness of voice. XI: The sternocleidomastoids and trapezii functioned normally. XII: The tongue was in the midline without any fasciculations or atrophy. MOTOR SYSTEM: The tone was normal in all four extremities. Examination of muscle mass revealed no focal wasting. Examination of power revealed grade 5/5 power in all muscle groups tested. SENSORY EXAMINATION: She had intact sensations to pinprick, light touch, and graphesthesia. COORDINATION: She performed well on [id number]-xy-[id number] and [id number]-at-bhzd testing. On Romberg test, she swayed but did not fall to one side or the other. REFLEXES: Trace+ and bilaterally symmetrical at the biceps, triceps, brachioradialis, and knees. 0 at both ankles. The plantar responses were flexor bilaterally. STANCE: She stood up independently. GAIT: She walked well independently. Impression/Recommendations Diagnostic Impression 1. Ms. Lubna Chow is a 36-year-old, right-handed, lady, who does have a past history of diabetes mellitus, which apparently is well controlled on glipizide and metformin. She was functioning relatively well until 2016 when she her and were cleaning a house, and then after she had drunk some orange juice she felt confused, disoriented and unwell. Following that, she is amnestic for the events until she came to the hospital. 2. She feels that she is back to her normal self. she has not had any further episodes of confusion. She denies any new neurologic symptoms. 3. The neurological examination at this time reveals that she is disoriented to the exact date. She has problems with remote memory, visuospatial function, and higher cognitive function, but it should be noted that the educational level is poor. She also has global hyporeflexia. 4. Laboratory data revealed that her hemoglobin was elevated to 17.3, her sodium was down to 131, blood sugar was elevated to 387, her alkaline phosphatase was elevated to 149 and her urine toxicology screen was positive for cannabinoids. 5. The patient's history, neurological examination, and laboratory data are most compatible with an episode of altered mental state, which has now resolved related to accidental cannabinoid intoxication - the can of orange juice was THC infused! Recommendations 1. The patient was again made aware that she should look at what she eats and drinks. 2. She was instructed to stay away from all illicit drugs. 3. Her blood sugars should be controlled and brought down to a more physiological range. Hari Nina M.D., M.S.P.Martine. HARI NINA Oct 05, 2016 13:59
--- NOTE | 2016-10-08 08:32 | Discharge Summary ---
Discharge Summary Hospital Course Date of Admission Oct 02, 2016 at 19:53 Date of Discharge Oct 05, 2016 at 14:38 Admitting Diagnosis dizziness, aloc HPI Lubna Chow is a 36 year old female who was admitted on Oct 02, 2016 at 19:53 for Dizziness, Altered Level Of Consciousnes Hospital Course dc summary #[id number] Discharge Medications Continued Medications: Insulin Glargine (Lantus) 100 Unit/1 Ml Insuln.pen 0 SUBQ BEDTIME, #1 EA 0 Refills Discharge Condition Upon Discharge: stable Discharge Disposition Patient was discharged to Home () Discharge Diagnoses: Discharge Instructions Discharge Instructions Special Instructions I have been assigned to complete a D/C Summary on this account. I was not involved in the patient management Paris Kimball NP ([facility]) Oct 08, 2016 08:32
--- NOTE | 2016-10-09 01:15 | Discharge Summary 2 SIG ---
DATE OF ADMISSION: 10/02/2016 DATE OF DISCHARGE: 10/05/2016 REASON FOR ADMISSION: The patient is a 36-year-old female, presented to emergency room with her for evaluation. The patient was brought by arts and humanities council director. According to arts and humanities council director, the patient was found outside of the hospital. 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 They stopped on grocery store to drink juice, they both admitted to feel dizzy after work, however, the patient felt worse than her . She became lethargic and altered. The stated that the patient was diabetic and did not take her medication this day. There was no chest pain. No shortness of breath. No fever. No chills. Upon presentation, the patient was tachycardic 124, tachypnea 22, blood pressure 166/122, pulse oximetry was stable on two liters nasal cannula and temperature 99.1 degrees. There was no leukocytosis. Sodium was 131, potassium 3.3, stable renal parameters and blood sugar was 387. Stable LFT. Negative troponin. Toxicology screen was positive for marijuana. Urinalysis was negative. EKG revealed sinus tachycardia. No acute changes. Chest x-ray revealed no acute cardiopulmonary disease. CT of the head revealed no acute intracranial pathology. The patient admitted for further management. ADMITTING DIAGNOSES: 1. Hyperglycemia. 2. Altered level of consciousness. 3. Hyponatremia. 4. Hypokalemia. HOSPITAL STAY: The patient admitted. Nephrology, Endocrinology and Neurology consult were requested. The patient started on isotonic IV fluids with potassium supplement. Sodium and potassium improved. According to polo coach, electrolyte imbalance was secondary to dehydration, which was corrected with isotonic IV fluids. Clinical Esthetician seen the patient. The patient started on metformin and glipizide. Hemoglobin A1c was 11.5, clearly not at goal. Sliding scale of insulin given as needed. Blood sugar normalized while in the hospital. The patient strongly encouraged to continue with her primary care provider as outpatient for tight blood sugar management. According to neurologist, the patient's clinical presentation and laboratory data were most compatible with episodes of altered mental status. The patient denied using marijuana on multiple location, it was presumed by neurologist that there was accidental marijuana intoxication in blood that possibly the can of orange juice had a infused. The patient neuro status back to clear and back to normal. No neuro deficit. The patient was made aware that she should look at what she eats and drinks and the patient was counseled to stay away from illicit drug. The patient was counseled to be compliant with anti-glycemic medication. The patient was stable for discharge. DISCHARGE DIAGNOSES: 1. Altered level of consciousness secondary to acute toxic metabolic encephalopathy. 2. Hyponatremia, depletion now. 3. Hypokalemia. 4. Hyperglycemia. 5. Diabetes, out of control. DISCHARGE MEDICATIONS: See medication reconciliation list. DISCHARGE INSTRUCTIONS: The patient to follow up with the primary medical doctor. Counseled on compliance with anti-glycemic medication. Counseled on compliance follow up with the primary medical doctor for tighter blood sugar control. The patient was counseled to avoid illicit street drugs and the patient was made aware to look closely on what she eats and drinks. Kiko Hernandez M.D. I have been assigned to dictate discharge summary on this account and I was not involved in the patient's management. Paris Kimball ([facility]) N.P. DR: CRYSTAL JOB#: [id number] CC:
== END 2016-10-05 14:38 | disposition home or self-care (01) | DRG 917 ==
LOC: EDBD 15:43 → EMR 17:39 → 2E 19:53 → EDBEDREQ 20:51
DX: T40.7X1A Poisoning by cannabis (derivatives), accidental (unintentional), initial encounter (principal); G92 Toxic encephalopathy; E11.65 Type 2 diabetes mellitus with hyperglycemia; E87.1 Hypo-osmolality and hyponatremia; R41.82 Altered mental status, unspecified; R42 Dizziness and giddiness; Z88.0 Allergy status to penicillin; Z79.4 Long term (current) use of insulin; E87.6 Hypokalemia; Z91.14 Patient's other noncompliance with medication regimen
CPT/HCPCS: 36415; 70450; 71010; 80048; 80053; 80061; 80300; 80329; 81003; 81025; 82009; 82550; 82962; 83036; 83735; 83930; 84100; 84300; 84484; 84550; 85025; 86140; 93005; J1815